=== PATIENT | female | born 1970 | race Asian ===

== ENCOUNTER 2020-04-19 07:40 | Outpatient (CLI) | payer OTHER ==
[2020-04-19 13:23] LABS: BASOPHILS % (AUTO) 0.7 %; EOSINOPHILS # (AUTO) 0.1 10^3/uL (0.0-0.7); EOSINOPHILS % (AUTO) 1.4 %; HGB - HEMOGLOBIN 10.8 g/dL (12.0-16.0); LYMPHOCYTES # (AUTO) 1.4 10^3/uL (1.5-3.5); LYMPHOCYTES % (AUTO) 32.4 %; MEAN CORPUSCULAR HGB CONC 31.6 g/dL (32.0-36.0); MEAN CORPUSCULAR VOLUME 85.5 fL (81.0-99.0); MONOCYTES # (AUTO) 0.3 10^3/uL (0.0-1.0); MONOCYTES % (AUTO) 6.9 %; NEUTROPHILS # (AUTO) 2.5 10^3/uL (1.5-6.6); NEUTROPHILS % (AUTO) 58.4 %; PLT - PLATELET COUNT 322 10^3/uL (130-450); RED CELL DISTRIBUTION WIDTH 15.3 % (12.0-15.0); WHITE BLOOD COUNT 4.3 x10^3/uL (4.8-10.8)
[2020-04-19 14:00] LABS: ALBUMIN 4.4 g/dL (3.2-5.5); ALBUMIN/GLOBULIN RATIO 1.3 (1.0-2.2); ALKALINE PHOSPHATASE 51 IU/L (42-121); ALT ALANINE AMINOTRANSFERASE 14 IU/L (10-60); AST ASPARTATE AMINOTRANSFERASE 20 IU/L (10-42); BILIRUBIN,TOTAL 0.7 mg/dL (0.2-1.0); BUN - BLOOD UREA NITROGEN 15 mg/dL (6-20); CARBON DIOXIDE - CO2 24 mmol/L (21-32); CHLORIDE 102 mmol/L (101-111); CHOL/HDL RATIO 4.2 (<4.4); CHOLESTEROL 263 mg/dL; CREATININE 0.7 mg/dL (0.4-1.0); GLUCOSE 92 mg/dL (70-100); HDL CHOLESTEROL 62 mg/dL; LDL CHOLESTEROL,CALCULATED 173 mg/dL; LDL/HDL RATIO 2.8 (<4.4); SODIUM 136 mmol/L (135-145); TOTAL PROTEIN 7.8 g/dL (6.7-8.2); VLDL CHOLESTEROL 28 mg/dL
== END 2020-04-19 23:59 | disposition home or self-care (01) ==
LOC: LAB.WCP 07:40
PROVIDERS: ATTEND Physician Assistant
DX: Z00.00 Encounter for general adult medical examination without abnormal findings (principal)
CPT/HCPCS: 36415; 80053; 80061; 83721; 84443; 85025

== ENCOUNTER 2020-05-03 08:00 | Outpatient (CLI) | payer OTHER ==
[2020-05-03 19:15] LABS: % IRON SATURATION 6 % (20-50); IRON 31 ug/dL (28-170); TOTAL IRON BINDING CAPACITY 556 ug/dL (250-450); TRANSFERRIN 397 mg/dL (192-382)
== END 2020-05-03 23:59 | disposition home or self-care (01) ==
LOC: LAB.WCP 08:00
PROVIDERS: ATTEND Physician Assistant
DX: D50.9 Iron deficiency anemia, unspecified (principal)
CPT/HCPCS: 36415; 82728; 83540; 84466

== ENCOUNTER 2020-05-06 14:27 | Outpatient (CLI) | payer OTHER ==
--- NOTE | 2020-05-10 11:58 | Mammography Report ---
BILATERAL DIGITAL SCREENING MAMMOGRAM 3D/2D: 05/06/2020 CLINICAL: Routine screening. Comparison is made to exams dated: 05/10/2016 mammogram and 05/10/2015 mammogram - [facility]. The tissue of both breasts is extremely dense, which lowers the sensitivity of mammography . No significant masses, calcifications, or other findings are seen in either breast. There has been no significant interval change. IMPRESSION: NEGATIVE There is no mammographic evidence of malignancy. A 1 year screening mammogram is recommended. This exam was interpreted at Station ID: [id number]. NOTE: For mammograms, a report in lay terms will be sent to the patient. Approximately 15% of breast malignancies will not be visualized mammographically. In the management of a palpable breast mass, a negative mammogram must not discourage biopsy of a clinically suspicious lesion. Electronically Signed By: Sharon gordon/venancio:05/07/2020 16:48:51 ACR BI-RADS Category 1: Negative 3341F PARENCHYMAL PATTERN: (VD) - The breast(s) demonstrate(s) extremely dense parenchyma, limiting the sen sitivity of mammography. BI-RADS CATEGORY: (1) - 1 RECOMMENDATION: (ANNUAL) - Recommend routine annual screening mammography. [id number] 1 year screening LATERALITY: (B)
== END 2020-05-06 14:28 | disposition home or self-care (01) ==
LOC: DI.N 14:27
DX: Z12.31 Encounter for screening mammogram for malignant neoplasm of breast (principal)
CPT/HCPCS: 77063; 77067

== ENCOUNTER 2020-09-25 07:35 | Outpatient (CLI) | payer OTHER ==
--- NOTE | 2020-09-25 13:23 | Ultrasound Report ---
PROCEDURE: Pelvic w/Transvaginal INDICATIONS: IRON DEFICIENCY ANEMIA TECHNIQUE: Real-time scanning was performed of the pelvic organs, with image documentation. Additional endovagi nal scanning was necessary due to incomplete visualization of the adnexal and endometrial structures by transabdominal scanning. COMPARISON: None. FINDINGS: No pathologic free abdominal or pelvic fluid. Uterus: Uterus is normal in size at 7.1 x 3.8 x 4.3 cm. The endometrium measures 14 mm in combined thickness. There is a question of a echogenic polyp within the lower aspect of the endometrial canal measuring 9 mm x 4 mm with some flow within it. Ovaries: Right ovary measures 1.4 x 1.4 x 1.2 cm. Left ovary measures 2.8 x 1.3 x 2.5 cm. IMPRESSION: There is a probable endometrial polyp in the lower part of the endometrial canal measuring 9 mm x 4 m m. Reviewed by: Martin Urbano MD on 09/25/2020 12:22 PM [facility] Approved by: Martin Urbano MD on 09/25/2020 12:22 PM [facility] Station ID: [id number]
== END 2020-09-25 07:36 | disposition home or self-care (01) ==
LOC: DI 07:35
PROVIDERS: ATTEND Obstetrics & Gynecology
DX: D50.9 Iron deficiency anemia, unspecified (principal)

== ENCOUNTER 2020-11-19 15:17 | Outpatient (CLI) | payer OTHER ==
[2020-11-19 15:41] LABS: BASOPHILS # (AUTO) 0.1 10^3/uL (0.0-0.1); BASOPHILS % (AUTO) 0.9 %; EOSINOPHILS # (AUTO) 0.1 10^3/uL (0.0-0.7); EOSINOPHILS % (AUTO) 2.4 %; HCT - HEMATOCRIT 36.5 % (37.0-47.0); HGB - HEMOGLOBIN 12.9 g/dL (12.0-16.0); LYMPHOCYTES % (AUTO) 34.3 %; MEAN CORPUSCULAR HGB CONC 35.3 g/dL (32.0-36.0); MEAN CORPUSCULAR VOLUME 93.4 fL (81.0-99.0); MEAN PLATELET VOLUME 8.7 fL (7.9-10.8); MONOCYTES # (AUTO) 0.4 10^3/uL (0.0-1.0); MONOCYTES % (AUTO) 6.1 %; NEUTROPHILS # (AUTO) 3.3 10^3/uL (1.5-6.6); NEUTROPHILS % (AUTO) 56.1 %; PLT - PLATELET COUNT 245 10^3/uL (130-450); RED BLOOD COUNT 3.91 10^6/uL (4.20-5.40); RED CELL DISTRIBUTION WIDTH 11.9 % (12.0-15.0); WHITE BLOOD COUNT 5.9 x10^3/uL (4.8-10.8)
== END 2020-11-19 15:18 | disposition home or self-care (01) ==
LOC: LAB 15:17
PROVIDERS: ATTEND Obstetrics & Gynecology
DX: Z01.812 Encounter for preprocedural laboratory examination (principal); N92.0 Excessive and frequent menstruation with regular cycle; N84.0 Polyp of corpus uteri; Z20.822 Contact with and (suspected) exposure to COVID-19
CPT/HCPCS: 36415; 85025

== ENCOUNTER 2020-11-24 06:14 | Day surgery (SDC) | payer OTHER ==
--- NOTE | 2020-11-23 22:48 | HISTORY & PHYSICAL EXAMINATION ---
HPI - History of Present Illness HPI Comment/Other: CC: menorrhagia HPI: Pt is here today for a preop consult for hysteroscopy with polypectomy ...................................................................ESTEFANÍA Mccrary November 11, 2020 2:19 PM The patient is a 49-year-old G2, P2, here for preop assessment for hysteroscopy D&C/polypectomy for menorrhagia. Patient was last seen in clinic on 06/08/20. At that time, she was found to have iron deficiency anemia on routine lab workk performed by PCP. Upon further questioning, the patient reported that she had heavy menses. She was referred to this clinic for further evaluation. The patient reports that she has regular cycles every month. Her second day of her cycle, she passes high volume menstrual flow. She goes through about 10 pads a day and soaks through them. If she is busy at work and cannot get to the bathroom, she will soak through her clothing and she occasionally soaks through her bedding. This change in her cycle occurred after her second 13 years ago. She had light cycles krissy or to that delivery. She is not currently sexually active and has not been active since in the last year. She is not currently using any contraception. She is unsure of what she has used for contraception in the past. She denies history of abnormal Pap smears and has had Pap smears in the last year. Denies any sexually transmitted infections. We discussed her own perception of her bleeding and she does not find her menses to be problematic. Her family history is significant for her sister with breast cancer at age 44 and her father has prostate cancer. She underwent a pelvic us on 09/25/20, which showed: Uterus: Uterus is normal in size at 7.1 x 3.8 x 4.3 cm. The endonnetrium measures 14 mm in combined thickness. There is a question of a echogenic polyp within the lower aspect of the endonnetrial canal measuring 9 mm x 4 mm with some flow within it. Ovaries: Right ovary measures 1.4 x 1.4 x 1.2 cm. Left ovary measures 2.8 x 1.3 x 2.5 cm. IMPRESSION; There is a probable endometrial polyp in the lower part of the endometrial canal measuring 9 mm x 4 mm. Hysteroscopy D&C with polypectomy was recommended. Patient presents for preop assessment. No change in HPI since time of prior exam. Allergies: No Known Allergies Medications: FERROUS SULFATE 325 MG TAB DARREN (FERROUS SULFATE) TAKE ONE TABLET BY MOUTH TWICE DAILY ZYRTEC ALLERGY 10 MG ORAL CAPSULE (CETIRIZINE HCL) ; Route: ORAL Problems: Preoperative examination (ICD-V72.84) (QWK01-N26.818) Iron deficiency anemia (ICD-280.9) (IKO91-N99.9) Menorrhagia (ICD-626.2) (LRM33-F64.0) Preventative health care (ICD-V70.0) (EBM83-I66.00) Family history of female breast cancer in 1st degree relative (ICD-V16.3) (UZY36-W98.3) Risk Factors-CCC with prev: Smoked Tobacco Use: Never smoker Smokeless Tobacco Use: Never Alcohol Use: no Drug Use: no Vital Signs: Patient Profile: 50 Years Old Female Height: 60 inches Weight: 147 pounds BMI: 28.81 BP sittin / 68 Cuff size: regular Vitals Entered By: ESTEFANÍA Mccrary (November 11, 2020 2:19 PM) Meds Reviewed: Done Allergies Reviewed: Done No known allergies: T Past Medical History: allergies Past Surgical History: C section x 2 x2. Appendix: [place] [employer] Review of Systems ROS Comments: As per HPI, otherwise remaining systems are negative. Physical Constitutional: GEN: NAD HEAD: NCAT EYES: No scleral icterus or conjunctival injection CV: RRR RESP: CTAB, normal effort ABD: S&NT/ND PSYCH: appropriate affect NEURO: alert and oriented, normal gait and coordination EXT: WWP Impression & Recommendations: Problem # 1: Preoperative examination (ICD-V72.84) (QKL50-E25.818) Reviewed risks/benefits/alternatives to hysteroscopy/polpectomy Risks include, but are not limited to, bleeding, infection, damage to neatby tissue and organs. On average, expected EBL is minimal. In the event of an unanticipated blood loss, patient is willing to undergo transfusion. Risks of blood transfusion include infection as well as transfusion reaction Risk of HIV 1/2million nationwide Risk of Hepatitis 1/1 million Risks of transfusion reaction and mgt reviewed Infection risk low given that no incisions alfredo be made and we will be using physiologic orifices. Will provide IV abx in the event of uterine perforation. Damage to nearby tissue and organs was reviewed with emphasis on uterine perforation and management, which can include surgical intervention based on bleeding risk. Reviewed management of complications and efforts to avoid such outcomes but reviewed that they may occur despite our best efforts. Patient agreed to the aforementioned procedure and written informed consent was obtained. Orders: PRE OP -[id number] ([id number]) Gender ID Identifies as Female P: 2 A: 0 L: 2 LMP: 06/08/2020 Height: 60 (06/08/2020 3:48:03 PM) Weight: 147 Last Mammo: BIRADS1 (05/06/2020 11:59:59 PM) Last Pap: Normal (05/03/2020 3:13:35 PM) PMH/PSH - Past Medical History Cardiovascular: positive: None Respiratory: positive: None Neuro: positive: None Endocrine/Autoimmune: positive: None GI: positive: None : positive: None HEENT: positive: Chronic vision loss Psych: positive: None Musculoskeletal: positive: None Derm: positive: None MRSA Hx?: No - Past Surgical History General: positive: Appendectomy /[employer]: positive: section Social & Family Hx - Social History Smoking Status: Former smoker Meds/Allgy - Home Medications Home Medications: Ambulatory Orders Medication Instructions Recorded Confirmed Cetirizine [ZyrTEC] 10 mg PO DAILY 06/25/20 11/19/20 Ferrous Sulfate 325 mg PO BID 06/25/20 11/19/20 - Allergies Allergies/Adverse Reactions: Allergies Allergy/AdvReac Type Severity Reaction Status Date / Time No Known Drug Allergies Allergy Verified 11/19/20 15:15
[2020-11-24] MEDS ORDERED: CELECOXIB 100 MG CAPSULE PO ONE (06:25)
[2020-11-24] MEDS ORDERED: GABAPENTIN 400 MG CAPSULE ONE (06:25)
[2020-11-24] MEDS ORDERED: ACETAMINOPHEN 1,000 MG/100 ML 100 ML IV ONE (06:25)
[2020-11-24 06:44] LABS: HCG UR QUAL NEGATIVE
[2020-11-24] MEDS ORDERED: LACTATED RINGERS 1,000 ML IV ONE ×2 (06:47→08:48)
[2020-11-24] MEDS ORDERED: BUPIVACAINE 0.25% PF 30 ML VIAL ONE (07:02)
[2020-11-24] MEDS ORDERED: LIDOCAINE MPF 2%-EPI 1:200000 20 ML VIAL ONE (07:02)
--- NOTE | 2020-11-24 07:24 | ANESTHESIA ---
Pre-Anesthesia VS, & Labs - Diagnosis uterine polyp - Procedure hysteroscopy, polypectomy Vital Signs: Temp Pulse Resp BP Pulse Ox 36.3 C L 66 20 115/74 98 11/24/20 06:47 11/24/20 06:47 11/24/20 06:47 11/24/20 06:47 11/24/20 06:47 Height: 5 ft Weight (kg): 68 kg Body Mass Index: 29.2 BMI Classification: Overweight - NPO >8 hours - Is Patient ?: No - Lab Results Current Lab Results: Laboratory Tests 11/24/20 06:49: POC Whole Bld Glucose 76 Home Medications and Allergies Cetirizine [ZyrTEC] 10 mg PO DAILY 06/25/20 Ferrous Sulfate 325 mg PO BID 06/25/20 Allergies/Adverse Reactions: Allergies Allergy/AdvReac Type Severity Reaction Status Date / Time No Known Drug Allergies Allergy Verified 11/19/20 15:15 Anes History & Medical History - Anesthetic History Anesthesia Complications: reports: No previous complications - Medical History Cardiovascular: reports: None Pulmonary: reports: None Gastrointestinal: reports: None Urinary: reports: None Neuro: reports: None Musculoskeletal: reports: None Endocrine/Autoimmune: reports: None Skin: reports: None Smoking Status: Former smoker History of Cancer?: No - Surgical History General: reports: Appendectomy Gynecologic: reports: section Exam General: Alert Dental: WNL Mouth Opening: Can't Open Mouth Mallampati classification: I Thyromental Distance: greater than 6 cm Respiratory: Lungs clear Cardiovascular: Regular rate Plan Anesthesia Type: General Consent for Procedure(s) Verified and Reviewed: Yes Code Status: Attempt Resuscitation ASA classification: 1-Healthy patient Is this case an emergency?: No
[2020-11-24] MEDS ORDERED: ePHEDrine 50 MG/ML VIAL IVP PRN (07:25)
[2020-11-24] MEDS ORDERED: ATROPINE ABBOJECT 1 MG/10 ML SYRINGE IVP PRN (07:25)
[2020-11-24] MEDS ORDERED: NALOXONE 0.4 MG/ML VIAL IVP PRN (07:25)
[2020-11-24] MEDS ORDERED: fentaNYL 100 MCG/2 ML VIAL IVP PRN (07:25)
[2020-11-24] MEDS ORDERED: MORPHINE 2 MG/ML CARPUJECT IVP PRN (07:25)
[2020-11-24] MEDS ORDERED: METOCLOPRAMIDE 10 MG/2 ML VIAL IVP PRN (07:25)
[2020-11-24] MEDS ORDERED: HYDROmorphone 0.5 MG/0.5 ML SYRINGE IVP PRN (07:25)
[2020-11-24] MEDS ORDERED: ONDANSETRON 4 MG/2 ML VIAL IVP PRN (07:25)
[2020-11-24] MEDS ORDERED: PROPOFOL 200 MG/20 ML VIAL IVP ONE ×2 (07:29→08:37)
[2020-11-24] MEDS ORDERED: MIDAZOLAM 2 MG/2 ML VIAL ONE (07:29)
[2020-11-24] MEDS ORDERED: LIDOCAINE-MPF 2% 5 ML VIAL ONE (07:29)
[2020-11-24] MEDS ORDERED: BUPIVACAINE 0.5% PF 30 ML VIAL SUBQ ONE ×2 (07:43)
[2020-11-24] MEDS ORDERED: LIDOCAINE 2%-EPI 1:100000 20 ML MDV SUBQ ONE ×2 (07:43)
[2020-11-24] MEDS ORDERED: BUPIVACAINE 0.5% PF 30 ML VIAL ONE (07:53)
[2020-11-24] MEDS ORDERED: LACTATED RINGERS 1,000 ML IV SCH (08:00)
--- NOTE | 2020-11-24 09:34 | OPERATIVE REPORT ---
Operative Report - General Planned Procedure: Hysteroscopy D&C with possible polypectomy Pre-Op Diagnosis: Dysfunctional uterine bleeding with thickened EMS Procedure Performed: Hysteroscopy D&C Post Op Diagnosis: Same - Procedure Note Primary Surgeon: Oksana iMller MD Anesthesia Provider: Hugh Méndez CRNA Anesthesia Technique: General mask Pathology: uterine contents Estimated Blood Loss (mL): 5 Urine Output (mL): 100 Indications: The patient is a 49-year-old G2, P2, here for preop assessment for hysteroscopy D&C/polypectomy for menorrhagia. Patient was last seen in clinic on 06/08/20. At that time, she was found to have iron deficiency anemia on routine lab workk performed by PCP. Upon further questioning, the patient reported that she had heavy menses. She was referred to this clinic for further evaluation. The patient reports that she has regular cycles every month. Her second day of her cycle, she passes high volume menstrual flow. She goes through about 10 pads a day and soaks through them. If she is busy at work and cannot get to the bathroom, she will soak through her clothing and she occasionally soaks through her bedding. This change in her cycle occurred after her second 13 years ago. She had light cycles prior to that delivery. She is not currently sexually active and has not been active since in the last year. She is not currently using any contraception. She is unsure of what she has used for contraception in the past. She denies history of abnormal Pap smears and has had Pap smears in the last year. Denies any sexually transmitted infections. We discussed her own perception of her bleeding and she does not find her menses to be problematic. Her family history is significant for her sister with breast cancer at age 44 and her father has prostate cancer. She underwent a pelvic us on 09/25/20, which showed: Uterus: Uterus is normal in size at 7.1 x 3.8 x 4.3 cm. The endonnetrium measures 14 mm in combined thickness. There is a question of a echogenic polyp within the lower a spect of the endonnetrial canal measuring 9 mm x 4 mm with some flow within it. Ovaries: Right ovary measures 1.4 x 1.4 x 1.2 cm. Left ovary measures 2.8 x 1.3 x 2.5 cm. IMPRESSION; There is a probable endometrial polyp in the lower part of the endometrial canal measuring 9 mm x 4 mm. Findings: Uterine cavity with thick, fluffy endometrium. Bilateral tubal ostia. No structural abnormalities. Complications: None - Other Other Information/Narrative: Risks benefits and alternatives to the procedure were reviewed. Consent was again confirmed. Patient was taken to the operating room where she underwent general anesthesia. She was positioned in dorsolithotomy position with legs resting in yellowfin stirrups. She was prepped and draped in the usual sterile fashion. Preoperative antibiotics were not indicated. Preoperative checklist was performed. Exam under anesthesia was performed. Speculum was placed in the vagina and the cervix was visualized. Single-tooth tenaculum was placed at the anterior cervical lip. Paracervical block was administered using a total of 20 cc of 2% lidocaine with epinephrine mixed with 0.5% bupivicaine was injected at the 4:00 and 8:00 positions lateral to the portio of the cervix. The cervical os was serially dilated with Hegar dilators to accommodate the caliber of the diagnostic hysteroscope. The hysteroscope was inserted and findings were noted as above. Hysteroscope was removed. Sharp curettage D&C was performed with sharp curet tage. Hysteroscope was reinserted and uterine cavity had been adequately sampled without residual structural abnormalities. All instruments were removed from the uterus. Tenaculum was removed. Tenaculum sites were noted to be hemostatic. All instruments were removed from the vagina. Procedure was well- tolerated without complication. Fluid deficit: 140 cc NS
[2020-11-24] MEDS ORDERED: oxyCODONE 5 MG TABLET PO PRN (09:37)
--- NOTE | 2020-11-24 10:51 | ANESTHESIA POST OP EVALUATION ---
Anesthesia Post Eval - Post Anesthesia Eval Vitals: Last Vital Signs Temp 36.4 C L 11/24/20 09:15 Pulse 60 11/24/20 10:23 Resp 18 11/24/20 10:23 BP 108/72 11/24/20 10:23 Pulse Ox 100 11/24/20 10:23 CV Function Including HR & BP: Stable Pain Control: Satisfactory Nausea & Vomiting: Negative Mental Status: Baseline Respiratory Status: Airway Patent Hydration Status: Satisfactory Anesthesia Complications: None
[2020-11-24] MEDS ORDERED: ONDANSETRON 4 MG/2 ML VIAL ONE (11:28)
[2020-11-24] MEDS ORDERED: ONDANSETRON 4 MG/2 ML VIAL IVP STA (11:30)
[2020-11-24 11:33] VITALS: BP 108/79
== END 2020-11-24 06:15 | disposition home or self-care (01) ==
LOC: SDS 06:14
PROVIDERS: ATTEND Obstetrics & Gynecology
PROC: 0UJD8ZZ Inspection of Uterus and Cervix, Via Natural or Artificial Opening Endoscopic (ICD-10-PCS; 2020-11-24)
PROC: 0UDB7ZX Extraction of Endometrium, Via Natural or Artificial Opening, Diagnostic (ICD-10-PCS; principal; 2020-11-24 07:30)
DX: N92.4 Excessive bleeding in the premenopausal period (principal); D50.9 Iron deficiency anemia, unspecified; E66.3 Overweight; Z87.891 Personal history of nicotine dependence
CPT/HCPCS: 58558; 81025; A9270; J0131; J7120

== ENCOUNTER 2022-05-17 08:10 | Outpatient (CLI) | payer OTHER ==
--- NOTE | 2022-05-17 12:13 | Mammography Report ---
BILATERAL DIGITAL DIAGNOSTIC MAMMOGRAM 3D/2D: 05/17/2022 CLINICAL: Focal left breast pain. Due for bilateral. Comparison is made to exams dated: 05/06/2020 mammogram - [facility], 05/10/2016 ammogram, and 05/10/2015 mammogram - [facility]. Both breasts are extremely dense, which lowers the sensitivity of mammography (category d />75% gland ular tissue). No significant masses, calcifications, or other findings are seen in either breast. Specifically, no finding to explain the patient's focal skin retraction and pain. Mammograms are otherwise stable. IMPRESSION: INCOMPLETE: NEEDS ADDITIONAL IMAGING EVALUATION There is no abnormality seen in the left breast to correspond with the pain and skin retraction at 2 o'clock. Ultrasound is recommended for full evaluation of this area. This was performed immediately following this exam. Based on Tyrer-Cuzick model (a risk assessment model), the patient's lifetime risk is 35.6% and her 1 0 year risk is 9.0%. If a patient has an elevated risk, a more comprehensive evaluation should be con sidered and/or a referral to a genetic counselor. The [place] [employer], [employer], and NCCN Guidelines advise the consideration of Breast MRI as an adjunct to screening mammog alysa in patients whose "Lifetime risk to develop breast cancer" is 20% or higher. This exam was interpreted at Station ID: [id number]. NOTE: For mammograms, a report in lay terms will be sent to the patient. Approximately 15% of breast malignancies will not be visualized mammographically. In the management of a palpable breast mass, a negative mammogram must not discourage biopsy of a clinically suspicious lesion. Electronically Signed By: Vanessa hou/:05/17/2022 09:02:50 ACR BI-RADS Category 0: Incomplete 3340F PARENCHYMAL PATTERN: (VD) - The breast(s) demonstrate(s) extremely dense parenchyma, limiting the sen sitivity of mammography. BI-RADS CATEGORY: (0) - 0 Ultrasound [id number] Immediate follow-up LATERALITY: (B)
--- NOTE | 2022-05-17 12:13 | Ultrasound Report ---
LIMITED ULTRASOUND OF LEFT BREAST: 05/17/2022 CLINICAL: Focal left breast pain. Comparison is made to exams dated: 05/17/2022 mammogram, 05/06/2020 mammogram - [facility], 05/10/2016 mammogram, and 05/10/2015 mammogram - [facility]. Color flow and real-time ultrasound of the left breast 1 o'clock region were performed. Navas scale images of the real-time examination were reviewed. There is a 0.6 cm x 0.6 cm x 0.4 cm irregular mass in the left breast at 1 o'clock posterior depth 8 cm from the nipple with the long axis parallel to the skin. This mass is homogeneously hyperechoic w ith no posterior acoustic shadowing or enhancement. This correlates to the skin retraction and area of pain. Color flow imaging demonstrates that there is no vascularity present. IMPRESSION: PROBABLY BENIGN The 0.6 cm hyperechoic mass in the left breast most likely is fat necrosis and is probably benign. A follow-up left ultrasound in 6 months is recommended to demonstrate resolution or stability. Findings and recommendations were conveyed to the patient at time of exam. This exam was interpreted at Station ID: [id number]. Electronically Signed By: Vanessa hou/:05/17/2022 09:37:16 Ultrasound BI-RADS: 3 Probably benign BI-RADS CATEGORY: (3) - 3 Ultrasound [id number] 6 month follow-up LATERALITY: (L)
== END 2022-05-17 08:11 | disposition home or self-care (01) ==
LOC: DI 08:10
PROVIDERS: ATTEND Physician Assistant
DX: N63.21 Unspecified lump in the left breast, upper outer quadrant (principal)

== ENCOUNTER 2022-07-14 10:41 | Outpatient (CLI) | payer OTHER ==
--- NOTE | 2022-07-18 13:01 | Ultrasound Report ---
LIMITED ULTRASOUND OF RIGHT BREAST: 07/14/2022 CLINICAL: Palpable right breast lump. Comparison is made to exams dated: 05/17/2022 mammogram and 05/06/2020 mammogram - [facility]. Color flow and real-time ultrasound of the right breast 11 o'clock region were performed. Navas scale images of the real-time examination were reviewed. There is a 1.9 cm x 1.8 cm x 0.8 cm irregular mass with an angular and spiculated margin in the right breast at 11 o'clock middle depth 3 cm from the nipple. This irregular mass is hypoechoic. This co rrelates as palpated. There is associated architectural distortion. Color flow imaging demonstrates that there is an adjacent vascularity. IMPRESSION: SUSPICIOUS OF MALIGNANCY The 1.9 cm x 1.8 cm x 0.8 cm irregular mass in the right breast is suspicious of malignancy. An ultrasound guided biopsy is recommended. Findings and recommendations were discussed with the patient in person by Dr. Daniele Meyer at time o f exam. Future imaging is recommended as follows: 11/16/2022 follow-up left ultrasound. This exam was interpreted at Station ID: [id number]. Electronically Signed By: Vanessa hou/:07/14/2022 12:47:04 Ultrasound BI-RADS: 4 Suspicious for malignancy BI-RADS CATEGORY: (4) - 4 Biopsy [id number] Immediate follow-up LATERALITY: (R)
== END 2022-07-14 10:42 | disposition home or self-care (01) ==
LOC: DI 10:41
PROVIDERS: ATTEND Surgery
DX: N63.11 Unspecified lump in the right breast, upper outer quadrant (principal)

== ENCOUNTER 2022-07-26 13:01 | Outpatient (CLI) | payer OTHER ==
[2022-07-26] MEDS ORDERED: LIDOCAINE 1%-EPI 1:100000 20 ML MDV ONE (14:01)
[2022-07-26] MEDS ORDERED: LIDOCAINE-MPF 1% 5 ML VIAL ONE (14:02)
[2022-07-26] MEDS ORDERED: LIDOCAINE-MPF 1% 5 ML VIAL TD ONE (15:29)
[2022-07-26] MEDS ORDERED: LIDOCAINE 1%-EPI 1:100000 20 ML MDV SUBQ ONE (15:30)
--- NOTE | 2022-07-27 12:04 | Mammography Report ---
UNILATERAL RIGHT DIGITAL DIAGNOSTIC MAMMOGRAM POST-PROCEDURE IMAGING FOR MARKER PLACEMENT: 07/26/2022 CLINICAL: Post right breast ultrasound biopsy clip placement imaging. Comparison is made to exams dated: 05/17/2022 mammogram, 05/06/2020 mammogram - [facility], and 05/10/2016 mammogram - [facility]. Biopsy clip is seen at the biopsy site. IMPRESSION: POST PROCEDURE MAMMOGRAM FOR MARKER PLACEMENT Biopsy clip at the biopsy site. This exam was interpreted at Station ID: [id number]. NOTE: For mammograms, a report in lay terms will be sent to the patient. Approximately 15% of breast malignancies will not be visualized mammographically. In the management of a palpable breast mass, a negative mammogram must not discourage biopsy of a clinically suspicious lesion. Electronically Signed By: Hal Lassiter M.D. fx/:07/26/2022 15:42:23 ACR BI-RADS Category Post-procedure mammogram for marker placement PARENCHYMAL PATTERN: (VD) - The breast(s) demonstrate(s) extremely dense parenchyma, limiting the sen sitivity of mammography. BI-RADS CATEGORY: () - Unspecified - other recall n/a LATERALITY: (B)
--- NOTE | 2022-08-02 09:07 | Ultrasound Report ---
ULTRASOUND GUIDED BIOPSY RIGHT BREAST USING VACUUM DEVICE WITH POST MAMMOGRAPHIC AND ULTRASOUND IMAGI N07/26/2022 CLINICAL: Right breast mass. PATIENT CONSENT: Risks (minor bleeding, infection, vasovagal reaction and repeat procedure), benefits and alternatives were explained to the patient and written informed consent was obtained. Correlation is made to exams dated: 07/26/2022 mammogram, 07/14/2022 ultrasound, 05/17/2022 ultrasound , 05/17/2022 mammogram, 05/06/2020 mammogram - , and 05/10/2016 mammogram - [facility]. An ultrasound guided biopsy using real-time ultrasound was performed for the mass located in the righ t breast at 11 o'clock middle depth. This was described on the previous ultrasound report. The skin was prepped in the usual manner. Local anesthetic was administered to the access site. The abnorma lity was approached from the lateral aspect. A 16 gauge biopsy needle was placed adjacent to the abn ormality under ultrasound guidance. Once the needle was documented to be in the correct location, fo ur specimens were obtained using the Mammotome biopsy system. Post procedure mammographic and ultras ound imaging demonstrates the clip at the targeted area. The specimens were sent to the laboratory f or pathological analysis. IMPRESSION: ULTRASOUND GUIDED BIOPSY MALIGNANT Ultrasound guided biopsy of the mass in the right breast middle depth was successful. Pathology indicates malignant invasive ductal carcinoma (ID). Pathology results are concordant with imaging findings. A surgical/oncologic consultation is recommended. Results and recommendations alfredo l be communicated to the ordering provider's office. Future imaging is recommended as follows: 11/16/2022 follow-up left ultrasound. This exam was interpreted at Station ID: [id number]. Hal Tejada M.D. fx,kraba/:08/01/2022 16:34:48 BI-RADS CATEGORY: () - Unspecified - other recall n/a LATERALITY: (B)
== END 2022-07-26 13:02 | disposition home or self-care (01) ==
LOC: DI 13:01
PROVIDERS: ATTEND Surgery
DX: C50.411 Malignant neoplasm of upper-outer quadrant of right female breast (principal); Z17.0 Estrogen receptor positive status [ER+]
CPT/HCPCS: 19083

== ENCOUNTER 2022-08-21 07:21 | Day surgery (SDC) | payer OTHER ==
[2022-08-21] MEDS ORDERED: CELECOXIB 100 MG CAPSULE PO ONE (07:31)
[2022-08-21] MEDS ORDERED: LORazepam 0.5 MG TABLET ONE (07:31)
[2022-08-21] MEDS ORDERED: CEFAZOLIN 2G/50ML 0.9% NS 2 GM/50 ML BAG IV ONE (07:32)
[2022-08-21] MEDS ORDERED: ACETAMINOPHEN 500 MG TABLET PO ONE (07:32)
[2022-08-21 07:42] LABS: HCG UR QUAL NEGATIVE
[2022-08-21] MEDS ORDERED: LACTATED RINGERS 1,000 ML IV ONE (07:53)
--- NOTE | 2022-08-21 10:40 | ANESTHESIA ---
Pre-Anesthesia VS, & Labs - Diagnosis right breast invasive ductal carcinoma - Procedure right breast lumpectomy and sentinel node biopsy Vital Signs: Temp Pulse Resp BP Pulse Ox O2 Flow Rate 36.7 C 72 16 105/59 L 100 0 08/21/22 07:54 08/21/22 07:54 08/21/22 07:54 08/21/22 07:54 08/21/22 07:54 08/21/22 07:54 Height: 5 ft Weight (kg): 64.6 kg Body Mass Index: 27.8 BMI Classification: Overweight - NPO >8 hours - Is Patient ?: No Home Medications and Allergies Home Medications: Ambulatory Orders No Known Home Medications 08/15/22 No Known Home Medications 08/15/22 Allergies/Adverse Reactions: Allergies Allergy/AdvReac Type Severity Reaction Status Date / Time latex Allergy Rash Verified 08/21/22 08:05 Anes History & Medical History - Anesthetic History Anesthesia Complications: reports: No previous complications - Medical History Cardiovascular: reports: None Pulmonary: reports: None Gastrointestinal: reports: None Urinary: reports: None Neuro: reports: None Musculoskeletal: reports: None Endocrine/Autoimmune: reports: None Blood Disorders: reports: None Skin: reports: None Smoking Status: Former smoker (25 years ago) Psychosocial: reports: No issues indicated History of Cancer?: Yes - Surgical History General: reports: Appendectomy Gynecologic: reports: section Exam General: Alert, Oriented x3, Cooperative, No acute distress Dental: WNL Mouth Openin Fingerbreadth Neck Mobility: Normal Mallampati classification: II Thyromental Distance: 4-6 cm Mental/Cognitive Status: Alert/Oriented X3, Normal for patient Plan Anesthesia Type: General Consent for Procedure(s) Verified and Reviewed: Yes Code Status: Attempt Resuscitation ASA classification: 2-Mild systemic disease Is this case an emergency?: No
[2022-08-21] MEDS ORDERED: ONDANSETRON 4 MG/2 ML VIAL IVP PRN ×2 (10:43→14:27)
[2022-08-21] MEDS ORDERED: ATROPINE ABBOJECT 1 MG/10 ML SYRINGE IVP PRN (10:43)
[2022-08-21] MEDS ORDERED: fentaNYL 100 MCG/2 ML VIAL IVP PRN (10:43)
[2022-08-21] MEDS ORDERED: NALOXONE 0.4 MG/ML VIAL IVP PRN (10:43)
[2022-08-21] MEDS ORDERED: MORPHINE 2 MG/ML CARPUJECT IVP PRN (10:43)
[2022-08-21] MEDS ORDERED: PROPOFOL 200 MG/20 ML VIAL IVP ONE (10:59)
[2022-08-21] MEDS ORDERED: fentaNYL 100 MCG/2 ML VIAL ONE (10:59)
[2022-08-21] MEDS ORDERED: MIDAZOLAM 2 MG/2 ML VIAL ONE (10:59)
[2022-08-21] MEDS ORDERED: LACTATED RINGERS 1,000 ML IV SCH (11:00)
[2022-08-21] MEDS ORDERED: LIDOCAINE MPF 2%-EPI 1:200000 20 ML VIAL ONE (11:01)
[2022-08-21] MEDS ORDERED: BUPIVACAINE 0.5% PF 30 ML VIAL ONE (11:01)
[2022-08-21] MEDS ORDERED: DEXAMETHASONE 4 MG/ML VIAL ONE (11:54)
[2022-08-21] MEDS ORDERED: ONDANSETRON 4 MG/2 ML VIAL ONE (11:54)
[2022-08-21] MEDS ORDERED: BUPIVACAINE 0.5% PF 30 ML VIAL SUBQ ONE ×2 (12:25)
[2022-08-21] MEDS ORDERED: LIDOCAINE MPF 2%-EPI 1:200000 20 ML VIAL SUBQ ONE ×2 (12:25)
[2022-08-21] MEDS ORDERED: SEVOFLURANE 250 ML LIQUID INH ONE (13:47)
[2022-08-21] MEDS ORDERED: LACTATED RINGERS 500 ML IV ONE (14:26)
[2022-08-21] MEDS ORDERED: IBUPROFEN 600 MG TABLET PO PRN (14:27)
[2022-08-21] MEDS ORDERED: oxyCODONE 5 MG TABLET PO PRN (14:27)
[2022-08-21] MEDS ORDERED: ACETAMINOPHEN 325 MG TABLET PO PRN (14:27)
--- NOTE | 2022-08-21 14:36 | OPERATIVE REPORT ---
Operative Report - General Procedure Date: 08/21/22 Planned Procedure: Right lumpectomy and sentinel lymph node biopsy Pre-Op Diagnosis: Invasive ductal carcinoma Procedure Performed: Right lumpectomy and sentinel lymph node biopsy Post Op Diagnosis: Invasive ductal carcinoma - Procedure Note Primary Surgeon: Dr. Maria T Lancaster Anesthesia Provider: Cindy Maurer CRNA Anesthesia Technique: General ET tube, Local Pathology: 1. Right breast lumpectomy 2. Right breast medial margin reexcision 3. [place] lymph node #1 (231) 4. [place] lymph node #2 (269) 5. [place] lymph node #3 (75) Estimated Blood Loss (mL): 50 Indications: The patient was found to have a palpable mass in her right breast on physical exam. Ultrasound guided did biopsy confirmed invasive ductal carcinoma. The patient was seen and evaluated in clinic where we discussed the risks, benefits, and alternatives of the breast conservation therapy including bleeding, infection, damage to surrounding structures, and the possible need for reexcision if positive margins are noted on pathology. The patient voiced understanding, her questions were answered, and she wished to proceed. A consent was signed in clinic. Of note, consent was obtained and the above discussion was had with the patient with the use of a video twisting operator. Findings: 1. Right breast lumpectomy 2. Right breast medial margin reexcision 3. [place] lymph node #1 (231) 4. [place] lymph node #2 (269) 5. [place] lymph node #3 (75) 6. Biopsy clip not visualized in either lumpectomy specimen or using fluoroscopy and x-ray in the OR Complications: None - Other Other Information/Narrative: The patient was taken to the operating room and placed in the supine position. Preop antibiotics were given. ERAS medications were given. The patient was prepped and draped in the usual sterile fashion. A preop surgical timeout was performed. Attention was turned to the patient's right breast. An curvilinear incision was made along the superior aspect of the nipple areolar complex, as close as possible to the palpable mass. Skin flaps were raised superiorly to the incision. At this point, serrated scissors were used to perform a lumpectomy staying approximately 0.5 cm away from the palpable masses in all dimensions. The lumpectomy specimen was removed and oriented with suture (short superior, long lateral, double anterior) on the back table. The specimen was sent to mammography but no biopsy clip was noted within the specimen. The specimen was t hen sent to pathology. The edges of the lumpectomy cavity were inspected and the medial margin was quite thickened. I elected to remove more tissue in this location. A second specimen labeled right breast lumpectomy, reexcision medial margin was also oriented with suture (short superior, long lateral, double anterior) and sent to x-ray. Unfortunately, the biopsy clip was not in the specimen either. Hemostasis was confirmed. Fluoroscopy and x-ray were used in the OR to look for the biopsy clip. No biopsy clip was visible on these imaging modalities. As the clip was not visualized to be within the patient, we proceeded with the case. The deep dermal tissues were closed with 3-0 Vicryl in an interrupted fashion. The skin was closed with 4-0 Monocryl in a running subcuticular fashion. Attention was then turned to the[right] axilla. An incision was made just inferior to the hairline at the area of greatest uptake using the neoprobe device. The incision was made using a 10 blade scalpel and carried down through the skin and subcutaneous tissues to the level of the axillary fascia. The fascia was incised. The sentinel lymph nodes were identified using the neoprobe. Clips were used proximally and distally to the nodes and the nodes were removed the first node had a maximal reading of 231 on the back table. The second sentinel lymph node measured 269 on the back table. The third sentinel lymph node had a maximal measurement of 75. On further inspection, there were no additional lymph nodes that had at least 10% uptake, 26, and no abnormal palpable nodes. Hemostasis was confirmed in the axilla. The deep dermal tissues were closed with 3-0 Vicryl. A 4-0 Monocryl running stitch was placed in a subcuticular fashion. Skin glue was placed over both incisions and a compressive dressing was placed. The patient tolerated the procedure well. There were no complications. She was extubated in the operating room and transferred to recovery in stable condition.
[2022-08-21] MEDS ORDERED: HYDROmorphone 0.5 MG/0.5 ML SYRINGE ONE ×2 (14:45→15:02)
[2022-08-21] MEDS: HYDROmorphone 0.5 MG/0.5 ML SYRINGE IVP PRN ×2 (14:48→15:03)
--- NOTE | 2022-08-21 14:48 | Discharge Plan ---
Discharge Plan Prescriptions: polyethylene glycoL 3350 [Miralax] 17 gm PO DAILY #238 gm oxyCODONE [Roxicodone] 5 mg PO Q4H PRN #11 tablet PRN Reason: Pain Instruction Topics: Lumpectomy No Smoking: If you smoke, Please STOP! Call for help. Follow-up with: Ashlee Núñez PA-C [Primary Care Provider] -
[2022-08-21] MEDS ORDERED: ACETAMINOPHEN 325 MG TABLET PO ONE (15:45)
[2022-08-21 16:07] VITALS: BP 101/59
--- NOTE | 2022-08-21 16:29 | ANESTHESIA POST OP EVALUATION ---
Anesthesia Post Eval - Post Anesthesia Eval Vitals: Last Vital Signs Temp 36.6 C 08/21/22 16:05 Pulse 67 08/21/22 16:05 Resp 16 08/21/22 16:05 BP 101/59 L 08/21/22 16:05 Pulse Ox 97 08/21/22 16:05 O2 Flow Rate 0 08/21/22 07:54 CV Function Including HR & BP: Stable Pain Control: Satisfactory Nausea & Vomiting: Negative Mental Status: Baseline Respiratory Status: Airway Patent Hydration Status: Satisfactory Anesthesia Complications: None
--- NOTE | 2022-08-21 21:35 | XRAY Report ---
PROCEDURE: OR C-Arm Procedure INDICATIONS: BREAST LUMPECTOMY FLUORO TIME: 0.01 min TECHNIQUE: Intraoperative x-ray and fluoroscopic images were acquired. COMPARISON: None. FINDINGS: Images of the chest are obtained. Clips are noted overlying the right axilla. IMPRESSION: Intraoperative images as above. Reviewed by: Yajaira Campos MD on 08/21/2022 9:34 PM PST Approved by: Yajaira Campos MD on 08/21/2022 9:34 PM [facility] Station ID: [id number]
--- NOTE | 2022-08-22 09:45 | Mammography Report ---
SPECIMEN RIGHT BREAST: 08/21/2022 CLINICAL: Right breast specimen. Correlation is made to exams dated: 07/26/2022 mammogram, 05/17/2022 mammogram, 05/06/2020 mammogram - [facility], and 05/10/2016 mammogram - [facility]. A specimen was imaged for the mass located in the right breast at 11 o'clock posterior depth. IMPRESSION: SPECIMEN The imaged specimen does not include biopsy clip. Future imaging is recommended as follows: 11/16/2022 follow-up left ultrasound. This exam was interpreted at Station ID: Unknown. Yajaira Campos M.D. [facility]/:08/21/2022 21:33:25 BI-RADS CATEGORY: () - Unspecified - other recall n/a LATERALITY: (B)
== END 2022-08-21 07:22 | disposition home or self-care (01) ==
LOC: SDS 07:21
PROVIDERS: ATTEND Surgery
PROC: 0HBT0ZZ Excision of Right Breast, Open Approach (ICD-10-PCS; principal; 2022-08-21 11:00)
PROC: 07B50ZX Excision of Right Axillary Lymphatic, Open Approach, Diagnostic (ICD-10-PCS; 2022-08-21 11:00)
DX: C50.411 Malignant neoplasm of upper-outer quadrant of right female breast (principal); Z17.0 Estrogen receptor positive status [ER+]; Z87.891 Personal history of nicotine dependence; Z80.3 Family history of malignant neoplasm of breast
CPT/HCPCS: 19301; 38525; 38792; 76098; 81025; A9270; A9520; J0690; J1170; J3490; J7120

== ENCOUNTER 2022-10-12 10:45 | Day surgery (SDC) | payer OTHER ==
[2022-10-12] MEDS ORDERED: CEFAZOLIN 2G/50ML 0.9% NS 2 GM/50 ML BAG IV ONE (11:18)
[2022-10-12] MEDS ORDERED: ACETAMINOPHEN 500 MG TABLET PO ONE (11:18)
[2022-10-12] MEDS ORDERED: LACTATED RINGERS 1,000 ML IV ONE ×3 (11:43→14:23)
[2022-10-12] MEDS ORDERED: fentaNYL 100 MCG/2 ML VIAL ONE (12:26)
[2022-10-12] MEDS ORDERED: SUGAMMADEX 200 MG/2 ML VIAL IVP ONE (12:26)
[2022-10-12] MEDS ORDERED: MIDAZOLAM 2 MG/2 ML VIAL ONE (12:26)
[2022-10-12] MEDS ORDERED: DEXAMETHASONE 4 MG/ML VIAL ONE (12:28)
[2022-10-12] MEDS ORDERED: ONDANSETRON 4 MG/2 ML VIAL ONE (12:28)
[2022-10-12] MEDS ORDERED: LIDOCAINE MPF 2%-EPI 1:200000 20 ML VIAL ONE (12:28)
[2022-10-12] MEDS ORDERED: BUPIVACAINE 0.5% PF 30 ML VIAL ONE (12:28)
[2022-10-12] MEDS ORDERED: ROCURONIUM 50 MG/5 ML VIAL ONE (12:28)
[2022-10-12] MEDS ORDERED: PROPOFOL 200 MG/20 ML VIAL IVP ONE (12:28)
--- NOTE | 2022-10-12 12:32 | ANESTHESIA ---
Pre-Anesthesia VS, & Labs - Diagnosis invasice ductal carcinoma - Procedure re-excision anterior breast margin Vital Signs: Temp Pulse Resp BP Pulse Ox O2 Flow Rate 36.4 C L 68 16 113/76 98 0 10/12/22 11:34 10/12/22 11:34 10/12/22 11:34 10/12/22 11:34 10/12/22 11:34 10/12/22 11:34 Height: 5 ft Weight (kg): 64 kg Body Mass Index: 27.5 BMI Classification: Overweight - NPO >8 hours - Is Patient ?: No Home Medications and Allergies Home Medications: Ambulatory Orders No Known Home Medications 10/09/22 No Known Home Medications 10/09/22 Allergies/Adverse Reactions: Allergies Allergy/AdvReac Type Severity Reaction Status Date / Time latex Allergy Rash Verified 08/21/22 08:05 Anes History & Medical History - Anesthetic History Anesthesia Complications: reports: No previous complications Family history of Anesthesia Complications: Denies Family history of Malignant Hyperthermia: Denies - Medical History Cardiovascular: reports: None Pulmonary: reports: None Gastrointestinal: reports: None Urinary: reports: None Neuro: reports: None Musculoskeletal: reports: None Endocrine/Autoimmune: reports: None Blood Disorders: reports: None Skin: reports: None Smoking Status: Former smoker (25 years ago) History of Cancer?: Yes (breast) - Surgical History General: reports: Appendectomy Gynecologic: reports: section Exam General: Alert, Oriented x3, Cooperative Dental: WNL Mouth Openin Fingerbreadth Neck Mobility: Normal Mallampati classification: I Thyromental Distance: 4-6 cm Respiratory: Lungs clear Cardiovascular: Regular rate Plan Anesthesia Type: General Consent for Procedure(s) Verified and Reviewed: Yes Code Status: Attempt Resuscitation ASA classification: 3-Severe systemic disease Is this case an emergency?: No
[2022-10-12] MEDS ORDERED: LIDOCAINE-PF 2% 10 ML AMP SUBQ ONE (12:44)
[2022-10-12] MEDS ORDERED: BUPIVACAINE 0.5% PF 30 ML VIAL SUBQ ONE ×2 (13:17)
[2022-10-12] MEDS ORDERED: LIDOCAINE MPF 2%-EPI 1:200000 20 ML VIAL SUBQ ONE ×2 (13:17)
[2022-10-12] MEDS ORDERED: ONDANSETRON 4 MG/2 ML VIAL IVP PRN ×2 (13:59→14:10)
[2022-10-12] MEDS ORDERED: oxyCODONE 5 MG TABLET PO PRN (13:59)
[2022-10-12] MEDS ORDERED: HYDROmorphone 0.5 MG/0.5 ML SYRINGE IVP PRN (13:59)
[2022-10-12] MEDS ORDERED: KETOROLAC 30 MG/ML VIAL ONE (14:03)
--- NOTE | 2022-10-12 14:06 | OPERATIVE REPORT ---
Operative Report - General Procedure Date: 10/12/22 Planned Procedure: reexcision positive margin, right breast Pre-Op Diagnosis: right breast, invasive ductal carcinoma Procedure Performed: reexcision positive margin, right breast Post Op Diagnosis: right breast, invasive ductal carcinoma - Procedure Note Primary Surgeon: Dr. Maria T Lancaster Anesthesia Provider: Heather Mark CRNA Anesthesia Technique: General LMA Pathology: right breast reexcison, h/o IDC Estimated Blood Loss (mL): 10 Indications: This is a 52-year-old female who was diagnosed with invasive ductal carcinoma of the right breast. She underwent a lumpectomy and right sentinel lymph node biopsy. Her lumpectomy specimen had a positive anterior margin. To achieve negative margins, I did discussed the plan with the patient to return to the OR for reexcision of the anterior margin. We discussed the risks, benefits, and alternatives including bleeding, infection, damage to surrounding structures, and a persistent positive margin. The patient voiced understanding, her questions were answered, and she wished to proceed. A consent was signed in clinic. Findings: 1. Anterior margin reexcised 2. Clips placed in anterior, posterior, medial, lateral, superficial, and inferior locations Complications: None - Other Other Information/Narrative: The patient was taken to the operating room and placed in the supine position. Preop antibiotics were given. ERAS medications were given. The patient was prepped and draped in the usual sterile fashion. A preop surgical timeout was performed. Attention was turned to the patient's right breast. Patient's previous incision was used. It was reopened using a 15 blade scalpel. Blunt dissection was undertaken to open the previous lumpectomy cavity. Short cut scissors were used to perform a reexcision of the anterior margin of the lumpectomy cavity. The reexcision was oriented on the back table short superior, long lateral, double new anterior margin. Hemostasis was ensured in the lumpectomy cavity. Clips were placed in the superior, inferior, medial, lateral, superficial, and deep locations. Local was injected. Hem ostasis was again confirmed. The deep dermal tissues were closed with 3-0 Vicryl. A 4-0 Monocryl running stitch was placed in a subcuticular fashion. Skin glue was placed on the incision. The patient tolerated the procedure well. There were no complications.
[2022-10-12] MEDS ORDERED: MORPHINE 2 MG/ML CARPUJECT IVP PRN (14:10)
[2022-10-12] MEDS ORDERED: NALOXONE 0.4 MG/ML VIAL IVP PRN (14:10)
[2022-10-12] MEDS ORDERED: METOCLOPRAMIDE 10 MG/2 ML VIAL IVP PRN (14:10)
[2022-10-12] MEDS ORDERED: ATROPINE ABBOJECT 1 MG/10 ML SYRINGE IVP PRN (14:10)
[2022-10-12] MEDS ORDERED: fentaNYL 100 MCG/2 ML VIAL IVP PRN (14:10)
[2022-10-12] MEDS: HYDROmorphone 0.5 MG/0.5 ML SYRINGE IVP PRN ×2 (14:10→14:30)
[2022-10-12] MEDS ORDERED: ePHEDrine 50 MG/ML VIAL IVP PRN (14:10)
[2022-10-12] MEDS ORDERED: HYDROmorphone 0.5 MG/0.5 ML SYRINGE ONE ×2 (14:15→14:31)
[2022-10-12] MEDS ORDERED: LACTATED RINGERS 1,000 ML IV SCH (15:00)
[2022-10-12] MEDS ORDERED: oxyCODONE 5 MG TABLET ONE (15:03)
[2022-10-12 15:33] VITALS: BP 120/89
--- NOTE | 2022-10-12 16:19 | ANESTHESIA POST OP EVALUATION ---
Anesthesia Post Eval - Post Anesthesia Eval Vitals: Last Vital Signs Temp 36.5 C 10/12/22 15:32 Pulse 60 10/12/22 15:32 Resp 14 10/12/22 15:32 BP 120/89 H 10/12/22 15:32 Pulse Ox 100 10/12/22 15:32 O2 Flow Rate 0 10/12/22 11:34 CV Function Including HR & BP: Stable Pain Control: Satisfactory Nausea & Vomiting: Negative Mental Status: Baseline Respiratory Status: Airway Patent Hydration Status: Satisfactory Anesthesia Complications: None
== END 2022-10-12 10:46 | disposition home or self-care (01) ==
LOC: SDS 10:45
PROVIDERS: ATTEND Surgery
PROC: 0HBT0ZZ Excision of Right Breast, Open Approach (ICD-10-PCS; principal; 2022-10-12 12:30)
DX: C50.911 Malignant neoplasm of unspecified site of right female breast (principal); Z17.0 Estrogen receptor positive status [ER+]; Z87.891 Personal history of nicotine dependence
CPT/HCPCS: 19301; A9270; J0690; J1170; J7120

== ENCOUNTER 2022-11-06 07:05 | Day surgery (SDC) | payer OTHER ==
[2022-11-06] MEDS ORDERED: CEFAZOLIN 2G/50ML 0.9% NS 2 GM/50 ML BAG IV ONE (07:12)
[2022-11-06] MEDS ORDERED: LACTATED RINGERS 1,000 ML IV ONE ×3 (07:19→10:12)
[2022-11-06 07:29] LABS: HCG UR QUAL NEGATIVE
[2022-11-06] MEDS ORDERED: ATROPINE ABBOJECT 1 MG/10 ML SYRINGE IVP PRN (07:35)
[2022-11-06] MEDS ORDERED: MORPHINE 2 MG/ML CARPUJECT IVP PRN (07:35)
[2022-11-06] MEDS ORDERED: ONDANSETRON 4 MG/2 ML VIAL IVP PRN (07:35)
[2022-11-06] MEDS ORDERED: ePHEDrine 50 MG/ML VIAL IVP PRN (07:35)
[2022-11-06] MEDS ORDERED: NALOXONE 0.4 MG/ML VIAL IVP PRN (07:35)
[2022-11-06] MEDS ORDERED: METOCLOPRAMIDE 10 MG/2 ML VIAL IVP PRN (07:35)
--- NOTE | 2022-11-06 07:35 | ANESTHESIA ---
Pre-Anesthesia VS, & Labs - Diagnosis invasive ductal carcinoma - Procedure re-excision positive margin R breast Vital Signs: Temp Pulse Resp BP Pulse Ox O2 Flow Rate 36.3 C L 71 13 117/76 17 L 11/06/22 07:19 11/06/22 07:19 11/06/22 07:19 11/06/22 07:19 11/06/22 07:19 Height: 5 ft - NPO >8 hours - Is Patient ?: No - Lab Results Lab results reviewed: Yes Home Medications and Allergies Home Medications: Ambulatory Orders No Known Home Medications 10/31/22 No Known Home Medications 10/31/22 Allergies/Adverse Reactions: Allergies Allergy/AdvReac Type Severity Reaction Status Date / Time latex Allergy Rash Verified 11/06/22 07:30 Anes History & Medical History - Anesthetic History Anesthesia Complications: reports: No previous complications Family history of Anesthesia Complications: Denies Family history of Malignant Hyperthermia: Denies - Medical History Cardiovascular: reports: None Pulmonary: reports: None Gastrointestinal: reports: None Urinary: reports: None Neuro: reports: None Musculoskeletal: reports: None Endocrine/Autoimmune: reports: None Blood Disorders: reports: None Skin: reports: None Smoking Status: Former smoker (25 years ago) - Surgical History General: reports: Appendectomy Gynecologic: reports: section Exam General: Alert, Oriented x3, Cooperative Dental: WNL Mouth Openin Fingerbreadth Neck Mobility: Normal Mallampati classification: II Thyromental Distance: 4-6 cm Respiratory: Lungs clear, Normal breath sounds, No respiratory distress Cardiovascular: Regular rate Neurological: Normal speech Mental/Cognitive Status: Alert/Oriented X3, Normal for patient Cognitive Status: Within normal limits Plan Anesthesia Type: General Consent for Procedure(s) Verified and Reviewed: Yes Code Status: Attempt Resuscitation ASA classification: 3-Severe systemic disease Is this case an emergency?: No
[2022-11-06] MEDS ORDERED: LIDOCAINE MPF 2%-EPI 1:200000 20 ML VIAL ONE (07:38)
[2022-11-06] MEDS ORDERED: BUPIVACAINE 0.25% PF 30 ML VIAL ONE (07:38)
[2022-11-06] MEDS ORDERED: MIDAZOLAM 2 MG/2 ML VIAL ONE (07:42)
[2022-11-06] MEDS ORDERED: PROPOFOL 200 MG/20 ML VIAL IVP ONE (07:44)
[2022-11-06] MEDS ORDERED: LIDOCAINE-PF 2% 10 ML AMP SUBQ ONE (07:44)
[2022-11-06] MEDS ORDERED: LACTATED RINGERS 1,000 ML IV SCH (08:00)
[2022-11-06] MEDS ORDERED: SEVOFLURANE 250 ML LIQUID INH ONE (08:15)
[2022-11-06] MEDS ORDERED: DEXAMETHASONE 4 MG/ML VIAL ONE (08:33)
[2022-11-06] MEDS ORDERED: ePHEDrine 50 MG/ML VIAL IVP ONE (08:48)
[2022-11-06] MEDS ORDERED: BUPIVACAINE 0.25% PF 30 ML VIAL SUBQ ONE ×2 (08:56)
[2022-11-06] MEDS ORDERED: LIDOCAINE 2%-EPI 1:100000 20 ML MDV SUBQ ONE ×2 (08:56)
--- NOTE | 2022-11-06 09:32 | OPERATIVE REPORT ---
Operative Report - General Procedure Date: 11/06/22 Planned Procedure: reexcision of positive margin, right breast Pre-Op Diagnosis: invasive ductal carcinoma and DCIS Procedure Performed: reexcision of positive margin, right breast Post Op Diagnosis: invasive ductal carnicoma and DCIS - Procedure Note Primary Surgeon: Dr. Maria T Lancaster Anesthesia Provider: Yann Dow CRNA Anesthesia Technique: General LMA, Local Pathology: re excision superior margin, labeled short new superior margin, long lateral, double anterior Estimated Blood Loss (mL): 10 Indications: This is a 52-year-old female who was diagnosed with invasive ductal carcinoma of the right breast. She underwent a lumpectomy and right sentinel lymph node biopsy. Her lumpectomy specimen had a positive anterior margin for DCIS which was reexcised. On re-excsion, she had a close superior margin (1mm) for DCIS. After discussion with the tumor board and the patient, she elected to proceed with additional reexcision with the goal of achieving a 2mm negative margin for DCIS. We discussed the risks, benefits, and alternatives including bleeding, infection, damage to surrounding structures, and a persistent positive margin. The patient voiced understanding, her questions were answered, and she wished to proceed. A consent was signed in clinic. Findings: 1. superior margin, re excised Complications: none - Other Other Information/Narrative: The patient was taken to the operating room and placed in the supine position. Preop antibiotics were given. ERAS medications were given. The patient was prepped and draped in the usual sterile fashion. A preop surgical timeout was performed. Attention was turned to the patient's right breast. Patient's previous incision was used. It was reopened using a 15 blade scalpel. Blunt dissection was undertaken to open the previous lumpectomy cavity. Sure cut scissors were used to perform a reexcision of the superior margin of the lumpectomy cavity. The reexcision was oriented on the back table short new superior margin, long lateral, double anterior. Hemostasis was ensured in the lumpectomy cavity. A clip was placed in the location of the new superior margin of the lumpectomy cavity. Local was injected. Hemostasis was again confirmed. The deep dermal tissues were closed with 3-0 Vicryl. A 4-0 Monocryl running stitch was placed in a subcuticular fashion. Skin glue was placed on the incision. The patient tolerated the procedure well. There were no complications.
[2022-11-06] MEDS: HYDROmorphone 0.5 MG/0.5 ML SYRINGE IVP PRN ×6 (09:41→11:05)
[2022-11-06] MEDS ORDERED: HYDROmorphone 1 MG/ML CARPUJECT ONE ×2 (09:44→11:06)
[2022-11-06] MEDS: fentaNYL 100 MCG/2 ML VIAL IVP PRN ×6 (09:52→10:55)
[2022-11-06] MEDS ORDERED: KETOROLAC 15 MG/ML VIAL ONE (09:53)
[2022-11-06] MEDS ORDERED: fentaNYL 100 MCG/2 ML VIAL ONE ×3 (09:53→10:57)
[2022-11-06] MEDS ORDERED: KETOROLAC 15 MG/ML VIAL IVP PRN (09:53)
[2022-11-06] MEDS ORDERED: ACETAMINOPHEN 1,000 MG/100 ML 1,000 MG/100 ML BAG IV ONE (10:41)
[2022-11-06] MEDS ORDERED: HYDROmorphone 0.5 MG/0.5 ML SYRINGE ONE (10:45)
[2022-11-06] MEDS ORDERED: LORazepam 2 MG/ML VIAL IVP PRN (11:08)
[2022-11-06] MEDS ORDERED: oxyCODONE 5 MG TABLET PO ONE (12:00)
[2022-11-06 12:56] VITALS: BP 115/75
[2022-11-06] MEDS ORDERED: ONDANSETRON 4 MG/2 ML VIAL ONE (13:04)
[2022-11-06] MEDS ORDERED: oxyCODONE 5 MG TABLET ONE (13:05)
--- NOTE | 2022-11-06 13:58 | ANESTHESIA POST OP EVALUATION ---
Anesthesia Post Eval - Post Anesthesia Eval Vitals: Last Vital Signs Temp 36.4 C L 11/06/22 12:55 Pulse 81 11/06/22 12:55 Resp 20 11/06/22 12:55 BP 115/75 11/06/22 12:55 Pulse Ox 100 11/06/22 12:55 O2 Flow Rate CV Function Including HR & BP: Stable Pain Control: Satisfactory Nausea & Vomiting: Negative Mental Status: Baseline Respiratory Status: Airway Patent Hydration Status: Satisfactory Anesthesia Complications: None
[2022-11-06] MEDS ORDERED: ONDANSETRON 4 MG/2 ML VIAL IVP ONE (14:00)
== END 2022-11-06 07:06 | disposition home or self-care (01) ==
LOC: SDS 07:05
PROVIDERS: ATTEND Surgery
PROC: 0HBT0ZZ Excision of Right Breast, Open Approach (ICD-10-PCS; principal; 2022-11-06 08:30)
DX: C50.911 Malignant neoplasm of unspecified site of right female breast (principal); Z87.891 Personal history of nicotine dependence
CPT/HCPCS: 19301; 81025; A9270; J0131; J0690; J1170; J2060; J3490; J7120

== ENCOUNTER 2023-01-02 08:36 | Outpatient (CLI) | payer OTHER ==
--- NOTE | 2023-01-03 10:37 | Ultrasound Report ---
LIMITED ULTRASOUND OF LEFT BREAST: 01/02/2023 CLINICAL: Patient returns for a 6 month follow up of the left breast. Comparison is made to exams dated: 07/14/2022 ultrasound, 05/17/2022 ultrasound, and 05/17/[address] [facility]. Color flow and real-time ultrasound of the left breast 1 o'clock region were performed. Navas scale i mages of the real-time examination were reviewed. There is a benign 0.3 cm x 0.3 cm x 0.3 cm round mass in the left breast at 1 o'clock posterior depth 8 cm from the nipple. This round mass is hyperechoic with no posterior acoustic shadowing or enhanc ement. This abnormality is decreased in size. Color flow imaging demonstrates that there is no vasc ularity present. IMPRESSION: BENIGN There is no sonographic evidence of malignancy. The 0.3 cm echogenic mass in the left breast is decreased in size and is benign. Exam findings were conveyed to the patient. Patient is advised to monitor for significant change. Cli nical follow-up as needed. Return to annual mammogram screening schedule is recommended. This exam was interpreted at Station ID: [id number]. Electronically Signed By: Ilir Landis M.D. [facility]/:01/02/2023 10:04:35 Ultrasound BI-RADS: 2 Benign BI-RADS CATEGORY: (2) - 2 Mammogram [id number] return to screening LATERALITY: (B)
== END 2023-01-02 08:37 | disposition home or self-care (01) ==
LOC: DI 08:36
PROVIDERS: ATTEND Physician Assistant
DX: N63.21 Unspecified lump in the left breast, upper outer quadrant (principal)

== ENCOUNTER 2023-08-20 13:42 | Outpatient (CLI) | payer OTHER ==
--- NOTE | 2023-08-21 16:23 | Mammography Report ---
BILATERAL DIGITAL SCREENING MAMMOGRAM 3D/2D: 08/20/2023 CLINICAL: Routine screening. Family history of breast cancer. Routine screening. Personal history of right breast cancer. Comparison is made to exams dated: 01/02/2023 ultrasound, 08/21/2022 specimen, 07/26/2022 ultrasound bio psy, 07/26/2022 mammogram, 07/14/2022 ultrasound, and 05/17/2022 ultrasound - [facility]. Both breasts are extremely dense, which lowers the sensitivity of mammography (category d />75% gland ular tissue). There are benign post operative findings in the right breast. No significant masses, calcifications, or other findings are seen in either breast. There has been no significant interval change. IMPRESSION: BENIGN There is no mammographic evidence of malignancy. A 1 year screening mammogram is recommended. This exam was interpreted at Station ID: [id number]. NOTE: For mammograms, a report in lay terms will be sent to the patient. Approximately 15% of breast malignancies will not be visualized mammographically. In the management of a palpable breast mass, a negative mammogram must not discourage biopsy of a clinically suspicious lesion. Electronically Signed By: Sharon gordon/venancio:08/20/2023 16:33:00 letter sent: No_Letter ACR BI-RADS Category 2: Benign Finding(s) 3342F PARENCHYMAL PATTERN: (VD) - The breast(s) demonstrate(s) extremely dense parenchyma, limiting the sen sitivity of mammography. BI-RADS CATEGORY: (2) - 2 Mammogram [id number] 1 year screening LATERALITY: (B)
== END 2023-08-20 13:43 | disposition home or self-care (01) ==
LOC: DI.N 13:42
PROVIDERS: ATTEND Internal Medicine Hematology & Oncology
DX: Z12.31 Encounter for screening mammogram for malignant neoplasm of breast (principal); Z80.3 Family history of malignant neoplasm of breast; Z85.3 Personal history of malignant neoplasm of breast; R92.343 Mammographic extreme density, bilateral breasts